=== PATIENT | female | born 1985 | race Caucasian/White ===

== ENCOUNTER 2019-06-23 07:53 | Inpatient (IN) ==
--- NOTE | 2019-06-23 08:03 | History & Physical Report ---
Date of Service June 23, 2019 History of Present Illness Primary Care Provider: NO PCP [id number] confirmed via ultrasound on 11/27/2018. Here for induction. 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 Has been attending OB appointments regularly. No hx of complications with pregnancies, including pre-eclampsia or eclampsia. Did have multiple high blood pressure readings with previous however BP always came down after positional change. Contractions: none; occasional cramps Fluid or Blood loss: none Movement: active Labs Blood type: AB+ Antibody screen: negative H.9 Hct: 35.0 Wbc: 8.74 Plt: 186 Rubella: immune VDRL/RPR: nonreactive Gonorrhea: negative Chlamydia: negative HIV: negative GBS: + Glucose tolerance x2: uncontrolled DM1 Allergies Allergy/AdvReac Type Severity Reaction Status Date / Time cat dander Allergy Sneezing Verified 06/23/19 08:43 dog dander Allergy Sneezing Verified 06/23/19 08:43 No Known Drug Allergies Allergy none Verified 06/23/19 08:43 Home Medications Home Medications Medication Instructions Recorded Confirmed Type 1 tab PO DAILY 04/11/19 06/23/19 History vitamin,calcium,kfvzsxnd-behn-sagsa acid tablet Admelog U- 100 Insulin lispro 100 See Rx Instructions CONTINUOUS 05/28/19 06/23/19 Rx unit/mL subcutaneous solution SUBCUTANEOUS INFUSION .COMPLEX #60 ml NS valacyclovir 500 mg tablet 500 mg PO DAILY #30 tab 06/05/19 06/23/19 Rx acetone (urine) test strips #25 ea 06/10/19 06/22/19 History blood sugar diagnostic strips #10 ea 06/10/19 06/22/19 History lancets 30 gauge #25 ea 06/10/19 06/22/19 History pen needle, diabetic 32 gauge x #10 ea 06/10/19 06/22/19 History 5/32" levothyroxine 100 mcg tablet 100 mcg PO DAILY #30 tab 06/15/19 06/23/19 Rx Patient History Medical History Uncontrolled type 1 diabetes mellitus (Chronic) Hypothyroidism (Chronic) History of asthma [place] teeth extracted Social History Preferred Language: Yakut Communication Ability: Effective Coat Checker Required: No Beliefs That Will Affect Care: None marital status: Legally Current Living Situation: Family current occupational status: unemployed Other Information That Helps Us Care for You: No Feels Safe at Home: Yes Safety Concerns: Feels Safe At This Time Smoking Status: Former smoker Second Hand Exposure: No ; Hx Alcohol Use: No Hx Substance Use: No Review of Systems no fever, no chills and no fatigue no cough, no dyspnea and no wheezing no chest pain, no edema and no calf pain + cramping; no abdominal pain, no nausea, no vomiting, no constipation and no diarrhea/loose stools no dysuria and no difficulty urinating no back pain no seizure-like activity and no headache(s) Physical Exam Constitutional: well developed and well nourished Respiratory: normal respiratory effort; no respiratory distress, no labored breathing and no cough Auscultation: no diminished lung sounds, no crackles, no rales, no rhonchi and no wheezes Cardiovascular: Rate/Rhythm: regular rate and regular rhythm Extremities: normal capillary refill; no calf tenderness and no pedal edema Gastrointestinal (Abdomen): Inspection/Auscultation: + abdomen distended and normal bowel sounds Percussion/Palpation: abdomen nontender and no guarding Genitourinary: Manual OB Exam: + cervical dilation 3 cm, + cervical effacement 50% and + station -2 OB Exam Monitor Tracing: + external FHT monitor used and + category I Cervical Exam per nursing Results & Data Laboratory Results last TSH 10/1: 0.082 last T4 101: 1.17 last A1c 101: 8.6 Monitoring External Monitor Category 1 heart tracing Baseline HR 120 Moderate variability + Accelerations No decelerations Tocodynamometer No regular contractions on toco Supervising Physician Co-Signing Physician Notes Resident Physician Supervision Note: I interviewed and examined the patient. Discussed with Dr. Watson and agree with findings and plan as documented in the note. Any exceptions or clarifications are listed here: Patient is a , x 2 who presents to labor and delivery for induction of labor for poorly controlled Type 1 DM. Recent A1C >8. Blood sugar this am 192. Balderas placed last night. cx 3 this am. Plan insulin protocol. Pitocin induction. pcn for GBS postivie. ARom as indicated. Epidural on demand. anticipate . Documented By: Medina Knight MD, FACOG Resident Activity Tracking Resident Involvement: Resident Care Provided Care Provided: OB Delivery
[2019-06-23] MEDS ORDERED: PENICILLIN G POTASSIUM 6 MU in DEXTROSE 5% 250 ML IV STA (08:56)
[2019-06-23] MEDS ORDERED: OXYTOCIN 30 UNITS/500 ML BAG IV PRN ×2 (08:56→09:07)
[2019-06-23 09:37] LABS: Hemoglobin 11.9 g/dL (12.0-16.0); Mean Corpuscular Hemoglobin 28.9 pg (25-34); Mean Platelet Volume 10.8 fL (7.4-10.4); Platelet Count 186 K/uL (130-400); RDW Coefficient of Variation 14.5 % (11.5-14.5); RDW Standard Deviation 44.8 fL (36.4-46.3); Red Blood Count 4.12 M/uL (4.2-5.4); White Blood Count 8.74 K/uL (4.8-10.8)
[2019-06-23] MEDS: LACTATED RINGER'S 1,000 ML IV PRN ×2 (09:48→14:20)
[2019-06-23 09:55] LABS: Alanine Aminotransferase 11 U/L (12-78); Albumin Level 2.4 gm/dl (3.4-5.0); Aspartate Aminotransferase 12 U/L (15-37); BUN Creatinine Ratio 14.5 (10-20); Bilirubin Direct < 0.1 mg/dl (0-0.2); Blood Urea Nitrogen 12 mg/dl (7-18); Calcium 8.4 mg/dl (8.5-10.1); Carbon Dioxide 19 mmol/L (21-32); Chloride 109 mmol/L (98-107); Creatinine Clr Calc Pharmacy 98.8 ml/min; Est GFR (African American) 104.3; Glucose 183 mg/dl (70-99); Sodium 137 mmol/L (136-145)
[2019-06-23 09:56] LABS: Albumin Globulin Ratio 0.6 (0.9-2); Alkaline Phosphatase 250 U/L (45-117); Bilirubin,Total 0.3 mg/dl (0.2-1); Globulin 4.1 gm/dl (2.5-4.0); Total Protein 6.5 gm/dl (6.4-8.2)
[2019-06-23] MEDS ORDERED: INSULIN REGULAR 250 UNITS in SODIUM CHLORIDE 0.9% 247.5 ML IV PRN (10:08)
[2019-06-23] MEDS ORDERED: DEXTROSE 5% 1,000 ML IV SCH (10:30)
[2019-06-23] MEDS ORDERED: SODIUM CHLORIDE 0.9% 1000ML 1,000 ML IV PRN (10:30)
[2019-06-23] MEDS: PENICILLIN G POTASSIUM 3 MU in DEXTROSE 5% 100 ML IV PRN ×2 (13:49→18:25)
[2019-06-23] MEDS ORDERED: ePHEDrine sulfate 50 MG/ML AMP ONE (13:53)
[2019-06-23] MEDS ORDERED: fentaNYL citrate 100 MCG/2 ML VIAL ONE (13:53)
[2019-06-23] MEDS ORDERED: BUPIVACAINE 0.25% 30 ML VIAL ONE (13:53)
[2019-06-23] MEDS ORDERED: fentaNYL 2MCG/ML ROPIV 1.25MG/ML 100 ML BAG EPI ONE (13:54)
[2019-06-23] MEDS ORDERED: ONDANSETRON INJ 2 MG/ML 2 ML VIAL IV PRN (14:18)
[2019-06-23] MEDS ORDERED: NALOXONE HCL 1 MG in SODIUM CHLORIDE 0.9% 1000ML 1,000 ML IV PRN (14:18)
[2019-06-23] MEDS ORDERED: NALBUPHINE HCL INJ 10 MG/ML AMP IV PRN (14:18)
[2019-06-23] MEDS ORDERED: NALOXONE HCL 0.4 MG/1 ML VIAL/CARP IV PRN (14:18)
[2019-06-23] MEDS ORDERED: DiphenhydrAMINE HCL 50 MG/ML VIAL IV PRN (14:18)
[2019-06-23] MEDS ORDERED: fentaNYL 2MCG/ML ROPIV 1.25MG/ML 100 ML BAG EPI PRN (14:18)
[2019-06-23] MEDS ORDERED: ePHEDrine sulfate 50 MG/ML AMP IV PRN (14:18)
--- NOTE | 2019-06-23 14:20 | Anesthesiology Consultation ---
Date of Service June 23, 2019 Assessment & Plan Chart Review Chart Review: Patient NOT seen in Pre Admission Testing and Acceptable Risk for Labor Epidural Consults Requested none ASA ASA3 Proposed Anesthesia Anesthesia Type: Labor Epidural and CSE Risk / Benefits Reviewed With: PT / POA / Parent / Guardian, Accepts Plan and Informed Consent Obtained History Height/Weight Height: 5 ft 3 in Weight: 87.543 kg Allergies Allergy/AdvReac Type Severity Reaction Status Date / Time cat dander Allergy Sneezing Verified 06/23/19 08:43 dog dander Allergy Sneezing Verified 06/23/19 08:43 No Known Drug Allergies Allergy none Verified 06/23/19 08:43 Medications Home Medications Medication Instructions Recorded Confirmed Last Taken 1 tab PO DAILY 04/11/19 06/23/19 06/23/19 08:00 vitamin,calcium,atvhmthx-gflx-szhqr acid tablet Admelog U- 100 Insulin lispro 100 See Rx Instructions CONTINUOUS 05/28/1906/2306/23/19 unit/mL subcutaneous solution SUBCUTANEOUS INFUSION .COMPLEX #60 ml NS valacyclovir 500 mg tablet 500 mg PO DAILY #30 tab 06/05/19 06/23/19 06/23/19 08:00 acetone (urine) test strips #25 ea 06/10/19 06/22/19 Unknown blood sugar diagnostic strips #10 ea 06/10/19 06/22/19 Unknown lancets 30 gauge #25 ea 06/10/19 06/22/19 Unknown pen needle, diabetic 32 gauge x #10 ea 06/10/19 06/22/19 Unknown 5/32" levothyroxine 100 mcg tablet 100 mcg PO DAILY #30 tab 06/15/19 06/23/19 06/23/19 08:00 Active Medications Generic Name Dose Route Start Last Admin Trade Name Freq PRN Reason Stop Dose Admin Lactated Ringer's 1,000 mls @ 125 mls/hr 06/23/19 08:56 06/23/19 14:20 Lr IV 06/25/19 08:55 125 mls/hr .Q8H PRN Administration L&D Protocol Protocol Oxytocin 30 units in 500 mls @ 12 mls/hr 06/23/19 09:07 06/23/19 12:39 Pitocin IV 06/25/19 09:06 0.72 units/hr .Q24H PRN 12 mls/hr Labor Induction/Augmentation Titration Protocol 0.72 UNITS/HR Insulin Human Regular 250 250 mls @ 1 mls/hr 06/23/19 10:08 06/23/19 13:33 units/ Sodium Chloride IV 07/23/19 10:07 1 units/hr Q24H PRN 1 mls/hr BSG 80mg/dL or above Titration Protocol 1 UNITS/HR Dextrose 1,000 mls @ 100 mls/hr 06/23/19 10:30 06/23/19 13:33 D5w IV 07/23/19 10:29 75 mls/hr .Q10H STEVEN Infusion Protocol Sodium Chloride 1,000 mls @ 100 mls/hr 06/23/19 10:30 06/23/19 13:33 Nss 1000ml IV 07/23/19 10:29 0 mls/hr .Q10H PRN Infusion BSG 141 mg/dL or above Protocol Penicillin G Potassium 3 mu/ 106 mls @ 100 mls/hr 06/23/19 10:45 06/23/19 13:49 Dextrose IV 06/25/19 10:44 100 mls/hr Q4H PRN Administration Give until delivery NPO Date Last Intake of Fluids: 06/23/19 Time Last Intake of Fluids: 11:00 Date Last Intake of Solids: 06/23/19 Time Last Intake of Solids: 06:30 Past Medical History Medical History Uncontrolled type 1 diabetes mellitus (Chronic) Hypothyroidism (Chronic) History of asthma [place] teeth extracted Exercise / Class Metabolic Activity II 4-5 Yardwork/Stairs/Walk up hill Past Anesthesia History No Hx of Anesthesia Complications and No Family Hx of Anesthesia Complications Social History Smoking Status: Former smoker Hx Alcohol Use: No Hx Substance Use: No Review of Systems no chest pain or sob Physical Exam Vital Signs Last Vital Signs Temp 36.7 C 06/23/19 12:00 Pulse 66 06/23/19 14:22 Resp 18 06/23/19 12:00 BP 129/72 06/23/19 13:36 Pulse Ox 99 06/23/19 14:22 ENMT Mouth: no TMJ abnormality Thyromental Distance: > or= 3.5 Finger Breadths Mallampati Class: II Neck normal visual inspection Respiratory normal respiratory effort Auscultation: lungs clear to auscultation bilaterally Cardiovascular Rate/Rhythm: regular rate and regular rhythm Musculoskeletal Spine: normal cervical ROM Neurologic moves all extremities Psychiatric Orientation: alert and oriented x 3 Testing Laboratory Results 06/23/19 09:23 06/23/19 09:23 Blood Type AB Positive 06/23/19 09:23 Antibody Screen NEGATIVE 06/23/19 09:23 06/23/19 06/23/19 06/23/19 13:32 12:33 11:31 POC Glucose 103 H 122 H 146 H 06/23/19 06/23/19 10:35 09:32 POC Glucose 187 H 192 H
--- NOTE | 2019-06-23 15:18 | Labor Progress Brief Note ---
Date of Service June 23, 2019 Subjective comfortable after epidural. BS doing better. Assessment & Plan (1) Diabetes mellitus affecting , antepartum: continue current management plan. continue insulin protocol. Fetus category one. anticipate . Physical Exam Constitutional: WD/WN, vitals as above Psychiatric: A+Ox3, euthymic affect Genitourinary: cx--3/50/-2 arom--thin green meconium toco--q2-4min, pit at 12 efm--120s wtih mod variability, accels to 150s, no decels Results & Data Vital Signs (Past 12 Hours) Vital Signs Temp Pulse Resp BP Pulse Ox 06/23/19 15:12 85 99 06/23/19 15:10 67 136/65 06/23/19 15:07 67 100 06/23/19 15:06 61 138/66 06/23/19 15:02 66 98 06/23/19 15:01 77 134/72 06/23/19 14:57 65 99 06/23/19 14:56 65 136/76 06/23/19 14:52 64 99 06/23/19 14:49 73 139/68 06/23/19 14:47 74 114/55 L 99 06/23/19 14:45 68 124/61 06/23/19 14:43 62 124/65 06/23/19 14:42 65 99 06/23/19 14:41 70 122/77 06/23/19 14:39 60 122/75 06/23/19 14:37 64 122/79 99 06/23/19 14:32 69 100 06/23/19 14:27 65 100 06/23/19 14:22 66 99 06/23/19 13:36 62 129/72 06/23/19 12:00 36.7 C 70 18 134/81 06/23/19 10:59 84 135/86 06/23/19 09:54 68 137/78 06/23/19 08:57 37.0 C 18 06/23/19 08:41 75 129/63
--- NOTE | 2019-06-23 18:24 | Labor Progress Brief Note ---
Date of Service June 23, 2019 Subjective comfortable Assessment & Plan (1) Diabetes mellitus affecting , antepartum: Moving rapidly. Fetus overall reassuring. Anticipate . Physical Exam Constitutional: WD/WN, vitals as above Psychiatric: A+Ox3, euthymic affect Genitourinary: cx--ant lip/100/0 toco--q1-2 min, pit now off efm--120 with mod variability, variable early with contractions Results & Data Vital Signs (Past 12 Hours) Vital Signs Temp Pulse Resp BP Pulse Ox 06/23/19 18:20 59 L 100 06/23/19 18:05 61 100 06/23/19 18:03 63 141/83 H 06/23/19 17:50 60 99 06/23/19 17:35 59 L 100 06/23/19 17:31 58 L 18 149/85 H 06/23/19 17:20 62 99 06/23/19 17:05 66 100 06/23/19 16:50 69 100 06/23/19 16:49 75 126/75 06/23/19 16:35 66 18 121/72 99 06/23/19 16:20 62 18 122/71 99 06/23/19 16:04 59 L 18 121/61 99 06/23/19 15:50 60 18 125/64 06/23/19 15:49 59 L 97 06/23/19 15:35 57 L 16 122/68 06/23/19 15:34 58 L 98 06/23/19 15:20 36.5 C 15 06/23/19 15:19 65 16 138/75 06/23/19 15:17 62 99 06/23/19 15:16 66 138/71 06/23/19 15:12 85 99 06/23/19 15:10 67 136/65 06/23/19 15:07 67 100 06/23/19 15:06 61 16 138/66 06/23/19 15:02 66 98 06/23/19 15:01 77 16 134/72 06/23/19 14:57 65 99 06/23/19 14:56 65 16 136/76 06/23/19 14:52 64 99 06/23/19 14:49 73 16 139/68 06/23/19 14:47 74 114/55 L 99 06/23/19 14:45 68 124/61 06/23/19 14:43 62 18 124/65 06/23/19 14:42 65 99 06/23/19 14:41 70 18 122/77 06/23/19 14:39 60 18 122/75 06/23/19 14:37 64 18 122/79 99 06/23/19 14:32 69 100 06/23/19 14:27 65 100 06/23/19 14:22 66 99 06/23/19 13:36 62 129/72 06/23/19 12:00 36.7 C 70 18 134/81 06/23/19 10:59 84 135/86 06/23/19 09:54 68 137/78 06/23/19 08:57 37.0 C 18 06/23/19 08:41 75 129/63
[2019-06-23] MEDS ORDERED: ACETAMINOPHEN 325 MG TAB PO PRN (20:52)
[2019-06-23] MEDS ORDERED: OXYCODONE/ACETAMINOPHEN 5mg/325mg TAB PO PRN (20:52)
--- NOTE | 2019-06-23 21:52 | Anesthesia Procedure Note ---
Date of Service June 23, 2019 Anesthesia Post Epidural Note Vital Signs Vital Signs: Temp Pulse Resp BP Pulse Ox 36.5 C 81 18 131/81 99 06/23/19 21:00 06/23/19 21:31 06/23/19 21:45 06/23/19 21:31 06/23/19 20:35 Pain Intensity Lower Abdomen: Pain Intensity: 2 Notes Mental Status: alert / awake / arousable and participated in evaluation Nausea / Vomiting: adequately controlled Pain: adequately controlled Airway Patency, RR, SpO2: stable & adequate BP & HR: stable & adequate Hydration State: stable & adequate Neuraxial Anesthesia: was administered and sensory block is resolving Anesthetic Complications: no major complications apparent and Pt Satisfied with anesthetic care Epidural: Removed without complications and With tip intact
[2019-06-24] MEDS ORDERED: BENZOCAINE 20% AER SPR 82.5 GM CAN EXT PRN (00:36)
[2019-06-24] MEDS ORDERED: SUPERCREAM 0.870% 15 GM JAR EXT PRN (00:36)
[2019-06-24] MEDS ORDERED: DIPHTHERIA/TETANUS/PERTUSSIS 0.5 ML SYR/VIAL IM ONE (00:36)
[2019-06-24] MEDS ORDERED: bisacodyL 10 MG SUPP PR PRN (00:36)
[2019-06-24] MEDS ORDERED: HYDROCORTISONE ACETATE 25 MG SUPP PR PRN (00:36)
[2019-06-24] MEDS ORDERED: OXYTOCIN 30 UNITS/500 ML BAG IV PRN (00:36)
[2019-06-24] MEDS: DOCUSATE SODIUM 100 MG CAP PO SCH ×3 (01:08→21:21)
[2019-06-24] MEDS: IBUPROFEN 600 MG TAB PO PRN ×2 (06:27→23:49)
--- NOTE | 2019-06-24 06:27 | Obstetrical Progress Note ---
Date of Service June 24, 2019 Assessment & Plan (1) : PPD1, doing well. Will continue to watch today, but may be able to leave this PM if continues to do well. Present on Admission?: Yes (2) Kaykay's thyroiditis: Will continue levo 100 as per home dose. Recommend following up with PCP after discharge to reassess dosing and hypothyroid control Present on Admission?: Yes (3) Uncontrolled type 1 diabetes mellitus: Sugars last night at 193. Patient's insulin pump has been reattached, she has not checked her own blood sugars since last night. fasting and preprandial blood sugars ordered. hospitalist consulted for blood sugar management and outpatient recommendations. Will continue to monitor while on the floor. Present on Admission?: Yes Supervising Physician Co-Signing Physician Notes Resident Physician Supervision Note: I interviewed and examined the patient. Discussed with Dr. Gregory[ta and agree with findings and plan as documented in the note. Any exceptions or clarifications are listed here: Doing well. Will begin checking fasting and preprandial blood sugars as at home. Has her pump currently. Will have hospitalist come by to make recommendations for sugar management. Documented By: Medina Knight MD, FACOG Subjective with a hx DM1 and hashimotos thyroiditis PPD1 after induction of . Feeling well this AM. Was able to eat without pain, nausea or vomiting. No complaints of CP, SOb, calf tenderness, Gi upset. Still experiencing some cramping, rates pain2/10, doesn't request pain medication at this time. Still experiencing bloody painless discharge. Able to ambulate to the bathroom without issue. has not passed gas yet, has voided without burning or pain. Denies breast pain or discharge. Denies headaches. Plans to formula feed baby. Review of Systems Constitutional: no fever, no chills and no fatigue Eyes: no diplopia Respiratory: no cough and no dyspnea Cardiovascular: no chest pain, no syncope, no edema and no calf pain Gastrointestinal: + cramping; no abdominal pain, no nausea, no vomiting, no constipation and no diarrhea/loose stools Genitourinary: no dysuria and no difficulty urinating Neurologic: no headache(s) Physical Exam Constitutional: well developed and well nourished Respiratory: normal respiratory effort; no respiratory distress, no labored b reathing and no cough Auscultation: no diminished lung sounds, no crackles, no rales, no rhonchi and no wheezes Cardiovascular: Rate/Rhythm: regular rate and regular rhythm Extremities: normal capillary refill; no calf tenderness and no pedal edema Gastrointestinal (Abdomen): Inspection/Auscultation: + abdomen distended and normal bowel sounds Percussion/Palpation: abdomen nontender and no guarding Genitourinary: uterus palpable ~2 inches inferior to umbilicus, firm and nontender. Results & Data Vital Signs (Past 12 Hours) Vital Signs Temp Pulse Pulse Resp BP BP Pulse Ox 06/24/19 04:05 37.2 C 64 18 128/81 06/23/19 23:55 37.1 C 71 18 134/75 06/23/19 23:21 18 06/23/19 22:31 85 144/66 H 06/23/19 22:20 75 142/63 H 06/23/19 22:15 18 06/23/19 21:45 18 06/23/19 21:31 81 131/81 06/23/19 21:30 18 06/23/19 21:15 18 06/23/19 21:01 77 138/67 06/23/19 21:00 36.5 C 18 06/23/19 20:45 69 18 140/70 06/23/19 20:35 71 99 06/23/19 20:31 73 151/70 H 06/23/19 20:20 67 99 06/23/19 20:05 64 100 06/23/19 20:02 69 18 151/67 H 06/23/19 20:01 78 87 L 06/23/19 19:50 68 100 06/23/19 19:35 62 100 06/23/19 19:31 62 18 107/60 06/23/19 19:20 62 100 06/23/19 19:10 36.4 C L 18 06/23/19 19:05 60 100 06/23/19 19:02 60 121/65 06/23/19 18:50 61 100 06/23/19 18:35 63 100 06/23/19 18:31 59 L 135/74 06/23/19 18:20 59 L 100 PG Care Time/CCT Total # of Minutes Spent Total Time Spent with Patient: Total time spent is greater than 50% in coordination of care (as documented) at patient's floor/unit and/or counseling patient: Resident Activity Tracking Resident Involvement: Resident Care Provided Care Provided: OB Delivery
[2019-06-24] MEDS: LEVOTHYROXINE SODIUM 100 MCG TABLET PO SCH (06:28)
[2019-06-24] MEDS ORDERED: LEVOTHYROXINE SODIUM 100 MCG TABLET PO SCH (06:30)
[2019-06-24 06:33] LABS: Hematocrit (blood only) 34.9 % (37-47); Hemoglobin 11.9 g/dL (12.0-16.0)
[2019-06-24] MEDS: PRENATAL VITAMIN 1 TAB PO SCH (09:54)
--- NOTE | 2019-06-24 10:34 | Consultation ---
Date of Consultation June 24, 2019 Assessment & Plan (1) Uncontrolled type 1 diabetes mellitus: Patient with 3-year h/o T1DM and insulin pump use starting earlier in the . She is <24 hours post-delivery. Was transitioned to her insulin pump late last night. During my visit with her this am she had hypoglycemia to the upper 60s. She was not symptomatic. Insulin pump was in place at that time. I spoke with Dr Villa from endocrinology who has been managing her as an ou tpatient. He recommended interrupting the insulin pump at least until this evening and simply following her BSGs. He advised using a carb ratio of 1:30 and a correction factor of about 80-90. (again pre- parameters were carb ratio of 1:15 and correction factor of 50). Will plan to follow her BSGs through this evening to determine the timing of when to place the pump back on as well as if she is safe from medical standpoint to d/c home tonight. (2) Hypothyroidism: TSH on 06/03/19 was mildly depressed. Would not change any of her synthroid dosing at this time and simply recheck TSH as an outpatient in the next few weeks. (3) Asthma: no exacerbation at this time with stable O2 sats in RA. no symptoms/signs of VTE either despite family h/o VTE. Thank you for this consult. Will follow with you. History of Present Illness Requesting Physician: Medina Knight MD Reason for Consultation: post- T1DM management Attending Physician: Medina Knight MD, FACOG History of Present Illness Very pleasant 33yo female with T1DM, diagnosed 3 years ago and followed by Dr Albin Villa at [facility] endocrinology - who delivered a female via last evening. A review of the chart shows all BSGs <[address] [facility] for her labor & delivery. This am she was placed back on her insulin pump. The pump contains lispro. Hemoglobin a1c was noted to be 8.6% earlier this summer. She reports excellent control of her T1DM over the last few weeks with fasting BSGs in the 65-70 range. No symptoms reported from the hypoglycemia. Random and pre-prandial readings were also reported well less than 200. Pre- carb ratio was 1:15, and pre- correction factor was 50. Her basal rates on her insulin pump were ~ 1 unit/hr. Current pump settings -- carb ratio 1:2, correction factor 1:18, and basals of 2.3 units/hr from 7am to 6pm, 2 units/hr from 6pm to Midnight, and 2.5 units/hr from midnight to 7am. During my bedside visit her BSG was 68. She had no symptoms. She was about to eat her breakfast. Thus far mother/father are bonding well with their baby girl. Mom plans to bottle feed. Allergies Allergy/AdvReac Type Severity Reaction Status Date / Time cat dander Allergy Sneezing Verified 06/23/19 08:43 dog dander Allergy Sneezing Verified 06/23/19 08:43 No Known Drug Allergies Allergy none Verified 06/23/19 08:43 Home Medications Home Medications Medication Instructions Recorded Confirmed Type 1 tab PO DAILY 04/11/19 06/23/19 History vitamin,calcium,fojlyajp-zzyb-zmeag acid tablet Admelog U- 100 Insulin lispro 100 See Rx Instructions CONTINUOUS 05/28/19 06/23/19 Rx unit/mL subcutaneous solution SUBCUTANEOUS INFUSION .COMPLEX #60 ml NS acetone (urine) test strips #25 ea 06/10/19 06/22/19 History blood sugar diagnostic strips #10 ea 06/10/19 06/22/19 History lancets 30 gauge #25 ea 06/10/19 06/22/19 History pen needle, diabetic 32 gauge x #10 ea 06/10/19 06/22/19 History 5/32" levothyroxine 100 mcg tablet 100 mcg PO DAILY #30 tab 06/15/19 06/23/19 Rx Patient History Medical History Uncontrolled type 1 diabetes mellitus (Chronic) Hypothyroidism (Chronic) History of asthma [place] teeth extracted Family History Brother Deep vein thrombosis about age 25; genetic factor? 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 Beliefs That Will Affect Care: None marital status: Legally Current Living Situation: Family Current Living Situation Comment: lives in [place] current occupational status: unemployed Other Information That Helps Us Care for You: No other: 2 other kids- ages 10 and 6 Feels Safe at Home: Yes Safety Concerns: Feels Safe At This Time Smoking Status: Former smoker Second Hand Exposure: No ; Hx Alcohol Use: No Hx Substance Use: No Review of Systems Constitutional: no fever, no chills and no anorexia Eyes: no worsening vision Ear, Nose, Mouth, Throat: no nasal congestion, no sore throat and no dysphagia Respiratory: no cough, no dyspnea and no dyspnea on exertion Cardiovascular: no chest pain, no orthopnea, no palpitations and no edema Gastrointestinal: no abdominal pain, no nausea and no vomiting Genitourinary: no dysuria Musculoskeletal: no joint pain Integumentary: no rash Neurologic: no loss of sensation Endocrine: see HPI re: T1DM Physical Exam Constitutional: well developed and well nourished; no acute distress and no altered mental status ENMT: external ear and nose normal, oropharynx normal Neck: trachea midline, no thyromegaly Respiratory: normal respiratory effort, lungs clear to auscultation Cardiovascular: Rate/Rhythm: regular rate and regular rhythm Heart Sounds: normal S1 and normal S2; no murmur Vessels: posterior tibial pulses present and dorsalis pedis pulses present; no JVD Extremities: no edema Gastrointestinal (Abdomen): normal bowel sounds, soft, nontender, no hepatosplenomegaly Musculoskeletal: no cyanosis or clubbing, extremities motor strength 5/5 Skin: no rashes, warm and dry Neurologic: deep tendon reflexes 2+ bilaterally and moves all extremities Psychiatric: A+Ox3, euthymic affect Lymphatic: no cervical lymphadenopathy Results & Data Vital Signs (Past 12 Hours) Vital Signs Temp Pulse Resp BP Pulse Ox 06/24/19 09:30 36.9 C 64 19 125/74 98 06/24/19 04:05 37.2 C 64 18 128/81 06/23/19 23:55 37.1 C 71 18 134/75 06/23/19 23:21 18 Laboratory Results Laboratory Results - last 24 hr 06/23/19 06/23/19 06/23/19 11:31 12:33 13:32 Hgb Hct POC Glucose 146 H 122 H 103 H Fasting Glucose 06/23/19 06/23/19 06/23/19 14:54 15:55 17:02 Hgb Hct POC Glucose 117 H 112 H 100 H Fasting Glucose 06/23/19 06/23/19 06/23/19 18:51 19:55 21:12 Hgb Hct POC Glucose 117 H 109 H 105 H Fasting Glucose 06/23/19 06/23/19 06/24/19 22:50 22:53 06:07 Hgb 11.9 L Hct 34.9 L POC Glucose 179 H 193 H Fasting Glucose 06/24/19 06:10 Hgb Hct POC Glucose Fasting Glucose 173 H PG Care Time/CCT Total # of Minutes Spent Total Time Spent with Patient: Total time spent is greater than 50% in coordination of care (as documented) at patient's floor/unit and/or counseling patient: (1) Hypothyroidism Hypothyroidism type: due to Kaykay's thyroiditis Qualified Code(s): E03.8 - Other specified hypothyroidism; E06.3 - Autoimmune thyroiditis (2) Uncontrolled type 1 diabetes mellitus Coma presence: without coma Glycemic state: with hypoglycemia Qualified Code(s): E10.649 - Type 1 diabetes mellitus with hypoglycemia without coma (3) Asthma Asthma severity: unspecified severity Asthma persistence: unspecified Asthma complication type: unspecified Qualified Code(s): J45.909 - Unspecified asthma, uncomplicated
[2019-06-24] MEDS ORDERED: GLUCAGON FOR INJ 1 MG VIAL IM PRN (11:00)
[2019-06-24] MEDS ORDERED: DEXTROSE 50% 50 ML SYRINGE IV PRN (11:00)
[2019-06-24] MEDS ORDERED: GLUCOSE 10 TABS/TUBE PO PRN (11:00)
[2019-06-24] MEDS ORDERED: CARBOHYDRATES FOR HYPOGLYCEMIA PO PRN (11:00)
[2019-06-24] MEDS ORDERED: GLUCOSE 40% GEL 15 GM TUBE PO PRN (11:00)
[2019-06-24] MEDS ORDERED: INSULIN ASPART 100 UNITS/ML 3 ML PEN SC SCH (11:30)
[2019-06-24] MEDS ORDERED: bisacodyL 5 MG TABEC PO SCH (20:00)
--- NOTE | 2019-06-25 06:26 | Obstetrical Progress Note ---
Date of Service <Aleah Watson MD - Last Filed: 06/25/19 07:40> June 25, 2019 Assessment & Plan <Aleah Watson MD - Last Filed: 06/25/19 07:40> (1) : PPD2, doing well. Diminishing lochia, improving status in terms of post- care. 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 Recommend following up with PCP after discharge to reassess dosing and hypothyroid control (3) Uncontrolled type 1 diabetes mellitus: Per hospitalist consultation, needs to keep her sugars under 250 prior to discharge. Has had fasting sugars of 173, 136 however intermittent sugars have been alternating between lows of 50-60 at 8 pm and highs in 300s at 10 pm. Will need to follow closely with endocrine at discharge. Coma presence: without coma Glycemic state: with hypoglycemia Qualified Code(s): E10.649 - Type 1 diabetes mellitus with hypoglycemia without coma Subjective <Aleah Watson MD - Last Filed: 06/25/19 07:40> Ambulation: ambulating normally Voiding: no voiding problems Passing Gas:: Yes Diet Tolerance:: regular diet Feeding Type:: bottle feeding (formula) Current Pain Level(1-10): 0 doing well this AM, no complaints. Constitutional: + fatigue; no fever and no chills Respiratory: no cough and no dyspnea No shortness of breath Cardiovascular: + edema; no chest pain, no syncope and no calf pain Breast: no breast pain Gastrointestinal: no abdominal pain, no nausea, no vomiting, no cramping, no constipation and no diarrhea/loose stools Genitourinary (female): no dysuria and no difficulty urinating Neurologic: no headache(s) Physical Exam <Aleah Watson MD - Last Filed: 06/25/19 07:40> Constitutional well developed and well nourished Respiratory normal respiratory effort; no respiratory distress, no labored breathing and no cough Auscultation: no diminished lung sounds, no crackles, no rales, no rhonchi and no wheezes Cardiovascular Rate/Rhythm: regular rate and regular rhythm Extremities: normal capillary refill; no calf tenderness and no pedal edema Gastrointestinal (Abdomen) Inspection/Auscultation: + abdomen distended and normal bowel sounds Percussion/Palpation: abdomen nontender and no guarding Genitourinary OB Exam Abdomen: + fundal height (uterus firm and palpable below umbilicus) Results & Data <Aleah Watson MD - Last Filed: 06/25/19 07:40> Vital Signs (Past 12 Hours) Vital Signs Temp Pulse Resp BP Pulse Ox 06/24/19 23:40 36.6 C 77 16 146/75 H 99 06/24/19 20:35 37 C 88 16 109/65 98 <Rivka Holly MD, FACOG - Last Filed: 06/25/19 08:50> Co-Signing Physician Notes Resident Physician Supervision Note: I interviewed and examined the patient. Discussed with Dr. Watson and agree with findings and plan as documented in the note. Any exceptions or clarifications are listed here: [None] Documented By: Rivka Holly MD, FACOG Resident Activity Tracking <Aleah Watson MD - Last Filed: 06/25/19 07:40> Resident Involvement: Resident Care Provided Care Provided: OB Delivery
[2019-06-25 06:34] LABS: Hematocrit (blood only) 31.3 % (37-47); Hemoglobin 10.6 g/dL (12.0-16.0)
[2019-06-25] MEDS: LEVOTHYROXINE SODIUM 100 MCG TABLET PO SCH (06:36)
[2019-06-25] MEDS: PRENATAL VITAMIN 1 TAB PO SCH (08:06)
[2019-06-25] MEDS: DOCUSATE SODIUM 100 MG CAP PO SCH (08:06)
--- NOTE | 2019-06-25 08:55 | Hospitalist Progress Note ---
Date of Service June 25, 2019 Assessment & Plan (1) Uncontrolled type 1 diabetes mellitus: Patient with 3-year h/o T1DM and insulin pump use starting earlier in the . She is now about 36 hours post-delivery. Was transitioned to her insulin pump again last night. She had significant hyperglycemia last evening. Appropriately patient made several pump adjustments as mentioned in the HPI. Her BSG this am was 180s. I spoke again with Dr Villa from endocrinology who has been managing her as an outpatient for some time. I asked if he or his CDE would want to see her at the clinic today and he reported she could simply call in the next 24 hours to schedule f/u. Since patient has a good command of her insulin therapy and pump, and given the BSG of 180s this am, she is safe for d/c home. Will use carb ratio of 1:15 and a correction factor of 40 at d/c. Will use basal rate of 1unit/hr for the entire 24-hour period. Additional adjustments will be made this week as patient will indeed f/u with Dr Villa's office. She follows with the CDEs as well. Patient voiced understanding of plan of care. (2) Hypothyroidism: TSH on 06/03/19 was mildly depressed. Would not change any of her synthroid dosing at this time and simply recheck TSH as an outpatient in the next few weeks. (3) Asthma: no exacerbation at this time with stable O2 sats in RA. no symptoms/signs of VTE either despite family h/o VTE. ok for d/c home from medical standpoint Subjective BSGs were high 300s last night. patient adjusted her pump on her own -- she increased her basal rate to 1 unit/hr and adjusted her correction to 40. she also increased her carb ratio to 1:15. no new issues. BSG this am was 180s. her daughter is doing well. Review of Systems Respiratory: no dyspnea and no dyspnea on exertion Cardiovascular: no chest pain Gastrointestinal: no abdominal pain Musculoskeletal: no leg pains Physical Exam Constitutional: well developed and well nourished; no acute distress and no altered mental status ENMT: external ear and nose normal, oropharynx normal Respiratory: normal respiratory effort, lungs clear to auscultation Cardiovascular: Rate/Rhythm: regular rate and regular rhythm Heart Sounds: normal S1 and normal S2; no murmur Vessels: posterior tibial pulses present and dorsalis pedis pulses present; no JVD Extremities: no edema Skin: no rashes, warm and dry Neurologic: moves all extremities Psychiatric: A+Ox3, euthymic affect Results & Data Vital Signs (Past 12 Hours) Vital Signs Temp Pulse Resp BP Pulse Ox 06/24/19 23:40 36.6 C 77 16 146/75 H 99 PG Care Time/CCT Total # of Minutes Spent Total Time Spent with Patient: Total time spent is greater than 50% in coordination of care (as documented) at patient's floor/unit and/or counseling patient: (1) Hypothyroidism Hypothyroidism type: due to Kaykay's thyroiditis Qualified Code(s): E03.8 - Other specified hypothyroidism; E06.3 - Autoimmune thyroiditis (2) Uncontrolled type 1 diabetes mellitus Coma presence: without coma Glycemic state: with hypoglycemia Qualified Code(s): E10.649 - Type 1 diabetes mellitus with hypoglycemia without coma (3) Asthma Asthma complication type: unspecified Asthma persistence: unspecified Asthma severity: unspecified severity Qualified Code(s): J45.909 - Unspecified asthma, uncomplicated
--- NOTE | 2019-06-26 16:36 | Delivery Summary ---
Vaginal Delivery Summary Date of Service June 26, 2019 Vaginal Delivery Summary Pre-operative Diagnosis: at 38 weeks poorly controlled type 1 DM GBS positive thin meconium Post-operative Diagnosis: Same Procedure: pitocin induction iv insulin pcn for GBS positive epidural arom repair of second degree and right labial laceration EBL: 400 cc Anesthesia: epidural Procedure: The patient was admitted for induction for poorly controlled type 1 DM. She received pitocin induction, pcn for GBS positive. Had an epidural placed and then AROM for thin green meconium. The patient progressed to complete dilation . The patient pushed to deliver a viable female. The anterior shoulder was easily delivered and the rest of the infant was then delivered without difficulty. A loose nuchal cord x 1 was reduced easily. The baby was vigorous. The nose and mouth were again bulb suctioned and the was placed in the maternal abdomen for drying and attention. Cord was clamped and cut at approximately one minute of life. Cord blood and segment obtained. Placenta did not deliver after 20 minutes and it was then manually extracted with some difficulty, in multiple pieces. An exam after placenta removal noted no appreciable retained products of conception. Cervix/sulci/rectum were intact. A second degree perineal laceration and right labial laceration were repaired in the normal standard fashion. Hemostasis obtained with dilute pitocin and fundal massage. Apgars were 8/9. Mother and baby doing well at the end of the delivery.
== END 2019-06-25 10:45 | disposition home or self-care (01) | DRG 807 ==
LOC: 4S1 08:39 → 4S2 06-24 00:03